=== PATIENT | female | born 1985 | race Caucasian/White ===

== ENCOUNTER 2016-09-17 21:36 | Emergency (ER) | payer SELFPAY ==
[2016-09-17] MEDS ORDERED: CEFTRIAXONE 1 GM VIAL ONE (22:56)
[2016-09-17] MEDS ORDERED: Ibuprofen 400 MG TAB ONE (22:56)
[2016-09-17] MEDS ORDERED: PHENAZOPYRIDINE 100 MG TAB ONE (22:56)
== END 2016-09-18 01:14 | disposition home or self-care (01) ==
LOC: ER 21:36
CPT/HCPCS: 36415; 76830; 80053; 81001; 81025; 84702; 85025; 87088; 87491; 87591; 87800; 96372